=== PATIENT | male | born 2000 | race Two or more races ===

== ENCOUNTER 2025-03-02 03:31 | Emergency (ER) | payer MEDICAID ==
[~2025-03-02] VITALS: Ht 188 cm; Wt 78.0 kg
[2025-03-02] MEDS: IV NS 0.9% 1,000 ML BAG IV ONE (05:00)
[2025-03-02 05:04] VITALS: BP 126/78; TEMP 98.1; O2SAT 98
== END 2025-03-02 05:04 | disposition home or self-care (01) ==
LOC: ER 03:59
DX: F10.10 Alcohol abuse, uncomplicated (principal); Z88.1 Allergy status to other antibiotic agents